=== PATIENT | female | born 1965 | race Caucasian/White ===

== ENCOUNTER → 2018-12-24 16:35 | Outpatient (CLI) | payer BC, SELFPAY ==
--- NOTE | 2018-12-24 16:40 | MM_ITS ---
MM Dig screening mamm BI w/CAD ORDERING PHYSICIAN : Ann Kothari PATIENT AGE: 53 years GENDER: Female COMPARISON: September 2013 and June 2012 bilateral digital mammograms Also February 2008 film screen mammogram INDICATION: ITS.Routine: SCRENNING. No hormones no new complaints. Family history. Maternal great aunt with breast cancer TECHNIQUE: Standard CC and MLO images were obtained. R2 CAD reviewed. Additional axillary cc views bilateral. Improvement and mediastinal FINDINGS: breast are of moderate density a but we see no significant new findings. No suspicious dominant mass. No suspicious calcifications.No new areas of concern either breast RIGHT BREAST:No new areas of significant concern Area at the deep right breast seen on MLO view is been present since 2011, 2007 studies. Most likely, deep intramammary lymph node X-ray cc view demonstrates what is a lymph node at the deep axillary tail of right breast of present on 2013 LEFT BREAST:Stable no new areas of concern IMPRESSION: ...... Stable bilateral mammogram No new areas of significant concern. . Moderate breast density Bilateral follow-up in one year. . BI-RADS Category: 1 Negative RECOMMENDED FOLLOW-UP: 1YR 1 YEAR FOLLOW-UP (A letter has been sent to the patient regarding results of the study.)
== END ==
PROVIDERS: PCP Nurse Practitioner Women's Health; Visit Provider Nurse Practitioner Women's Health
DX: Z12.31 Encounter for screening mammogram for malignant neoplasm of breast (principal)
CPT/HCPCS: 77067

== ENCOUNTER → 2021-04-14 15:51 | Outpatient (CLI) | payer BC, SELFPAY ==
--- NOTE | 2021-04-14 15:57 | MM_ITS ---
PROCEDURE: MM DIG SCREENING MAMM BI W/CAD Digital Breast Tomosynthesis Included CLINICAL INDICATION: SCREENING Screening for breast cancer COMPARISON: MG [facility] DIGITAL MAMM-SCREEN BILATERAL from 06/25/2012 MG [facility] DIG MAMM-SCREEN MAINE from 09/22/2013 MG [facility] MM Dig screening mamm BI w/CAD from 12/24/2018 TECHNIQUE: Standard CC and MLO images and 3D Tomosynthesis was obtained. R2 CAD reviewed. FINDINGS: There is moderate fibroglandular tissue with scattered areas of asymmetric fibroglandular tissue. No malignant appearing mass or malignant-appearing microcalcification. No skin thickening or architectural distortion. No change with no evidence of malignancy.. There is some minimal asymmetry in the medial aspect of the left breast felt to be due to overlying fibroglandular elements. Six-month follow-up suggested to confirm stability. Benign-appearing nodule noted in the upper outer aspect of the left breast unchanged IMPRESSION: No convincing evidence of malignancy. Probably benign findings medial left breast. BI-RAD Category: 3 Probably Benign Finding Short Term Follow-Up FOLLOW-UP: 6M 6 Month Follow-up (A letter has been sent to the patient regarding results of the study.) Dictated by: Tavon Lilly MD 04/21/2021 09:52 Tavon Lilly MD in [place] 04/21/2021 09:52
== END ==
PROVIDERS: PCP Family Medicine; Visit Provider Family Medicine
DX: Z12.31 Encounter for screening mammogram for malignant neoplasm of breast (principal)
CPT/HCPCS: 77063; 77067